=== PATIENT | male | born 1990 | race Native Hawaiian/Other Pacific Islander ===

== ENCOUNTER 2022-04-26 14:26 | Emergency (ER) | payer OTHER ==
[2022-04-26 15:03] VITALS: BP 114/67; PULSE 60; RESP 16; TEMP 98.1
[2022-04-26 15:30] LABS: Appearance,Urine Cloudy (Clear); Bacteria,Urine Rare /hpf; Bilirubin,Urine Negative (Negative); Blood,Urine Negative (Negative); Color,Urine Light Yellow; Glucose,Urine (UA) Negative (Negative); Ketones,Urine Negative (Negative); Leukocyte Esterase,Urine Negative (Negative); Nitrite,Urine Negative (Negative); PH, Urine 7.5 (5.0-8.0); Protein,Urine Negative (Negative); RBC,Urine <1 /hpf (0-5); Specific Gravity,Urine 1.018 (1.001-1.035); Urobilinogen,Urine <2.0 mg/dL (<2.0)
--- NOTE | 2022-04-26 15:56 | ED ---
General Adult HPI - General Chief complaint: Abdominal Pain Stated complaint: Possibe Groin Hernia Time Seen by Provider: 04/26/22 15:28 Source: patient Mode of arrival: ambulatory Limitations: no limitations - History of Present Illness Initial comments: Dictation was produced using [employer] dictation software. please excuse any grammatical, word or spelling errors. Chief Complaint: 31-year-old male presents emergency Department with angle hernia History of Present Illness: 31-year-old male with no significant past medical history. Patient states that he is here for left groin pain. Patient states that he had noticed a bulge in his left groin for several months. Over the last 2-3 days he's been having slightly worsening pain in that area. Patient noticed a bulge that can go in and out of his groin. Denies any nausea vomiting. Patient still passing gas. Denies seemed to feel like his groin is exacerbated with straining with stool bowel movements. Patient has any fever or constitutional symptoms. He went to an urgent care and was told to come to the emergency room. The ROS documented in this emergency department record has been reviewed and confirmed by me. Those systems with pertinent positive or negative responses have been documented in the HPI. All other systems are other negative and/or noncontributory. PHYSICAL EXAM: General Impression: Alert and oriented x3, not in acute distress HEENT: Normocephalic atraumatic, extra-ocular movements intact, pupils equal and reactive to light bilaterally, mucous membranes moist. Cardiovascular: Heart regular rate and rhythm Chest: Able to complete full sentences, no retractions, no tachypnea Abdomen: abdomen soft, non-tender, non-distended, no organomegaly Musculoskeletal: Pulses present and equal in all extremities, no peripheral edema Motor: no focal deficits noted Neurological: CN II-XII grossly intact, no focal motor or sensory deficits noted Skin: Intact with no visualized rashes Psych: Normal affect and mood : There is a palpable left inguinal mass that is palpable with Valsalva, testicular exam is unremarkable. No testicular asymmetry. No testicular palpatory tenderness. ED course: 31 y Old male presents to the emergency department for left inguinal hernia. As upon arrival are within acceptable limits. Patient has no high-risk features of incarcerated or strangulate hernia. Surgeries apparent with Valsalva however reduces with relaxation lying supine. Patient has no abdominal symptoms otherwise. Plan of care options are discussed with patient. At this point no obvious reason for CT imaging at this time. Patient warned of signs of strangulate it or incarcerated hernia and what to return to the emergency department. Otherwise patient told to follow up with general surgeon for outpatient management of a inguinal hernia. - Related Data Allergies Allergy/AdvReac Type Severity Reaction Status Date / Time No Known Allergies Allergy Verified 04/26/22 15:03 Review of Systems ROS Statement: Those systems with pertinent positive or pertinent negative responses have been documented in the HPI. ROS Other: All systems not noted in ROS Statement are negative. Past Medical History Past Medical History: No Reported History History of Any Multi-Drug Resistant Organisms: None Reported Past Surgical History: No Surgical Hx Reported Past Psychological History: No Psychological Hx Reported Smoking Status: Vaper Past Alcohol Use History: None Reported Past Drug Use History: Marijuana General Exam Limitations: no limitations Course Vital Signs 04/26/22 15:01 Temperature 98.1 F Pulse Rate 60 Respiratory 16 Rate Blood Pressure 114/67 O2 Sat by Pulse 100 Oximetry Medical Decision Making - Lab Data Lab Results 04/26/22 Range/Units 15:10 Urine Color Light Yellow Urine Appearance Cloudy (Clear) Urine pH 7.5 (5.0-8.0) Ur Specific [place] 1.018 (1.001-1.035) Urine Protein Negative (Negative) Urine Glucose (UA) Negative (Negative) Urine Ketones Negative (Negative) Urine Blood Negative (Negative) Urine Nitrite Negative (Negative) Urine Bilirubin Negative (Negative) Urine Urobilinogen <2.0 (<2.0) mg/dL Ur Leukocyte Esterase Negative (Negative) Urine RBC <1 (0-5) /hpf Urine Bacteria Rare H (None) /hpf Disposition Clinical Impression: Inguinal hernia Disposition: HOME SELF-CARE Condition: Fair Instructions (If sedation given, give patient instructions): Inguinal Hernia (ED) Additional Instructions: Seek immediate medical attention if you have worsening pain, nausea, vomiting or if your hernia is irreducible. These may be signs of incarceration and or st rangulation which may need to be treated with emergent surgery. Is patient prescribed a controlled substance at d/c from ED?: No Referrals: Aris Gil MD [Medical Doctor] - 1-2 days Aracelis Brewer MD [STAFF PHYSICIAN] - 1-2 days Ashley Santoyo DO [Doctor of Osteopathic Medicine] - 1-2 days Rere Hendricks DO [Doctor of Osteopathic Medicine] - 1-2 days Time of Disposition: 15:55
== END 2022-04-26 16:37 | disposition home or self-care (01) ==
LOC: EC 14:26
DX: K40.90 Unilateral inguinal hernia, without obstruction or gangrene, not specified as recurrent (principal); F17.290 Nicotine dependence, other tobacco product, uncomplicated; F12.90 Cannabis use, unspecified, uncomplicated
CPT/HCPCS: 81001; 99283